=== PATIENT | male | born 1995 | race African-American/Black ===

== ENCOUNTER 2017-05-30 01:00 | Emergency (ER) | payer BC ==
[~2017-05-30] VITALS: Ht 162.6 cm; Wt 64.9 kg
[2017-05-30 01:03] VITALS: TEMP 36.5; O2SAT 98; Ht 162.6 cm; Wt 64.9 kg
--- NOTE | 2017-05-30 01:13 | EMERGENCY ROOM VISIT NOTE ---
History Report prepared by Kyra: Pastora Amanda Under the Supervision of: Dr. Jose Locke M.D. First contact with patient: 01:02 Chief Complaint: ALCOHOL OVERDOSE Stated Complaint: ALCOHOL History of Present Illness The patient is a 21 year old male who presents to the Emergency Room with persistent alcohol intoxication starting SECURITY DIRECTOR. The patient presents to the ED by EMS. He was found outside the [facility] by police. He states he was drinking at a birthday alliance party at the [facility]. He is unsure what he was drinking. He denies any vomiting or nausea. He denies having any pain. Source of History: patient, EMS Onset: SECURITY DIRECTOR Position: other (global) Quality: other (alcohol intoxication) Timing: other (persistent) Associated Symptoms: + vomiting, No nausea Note: Pt denies having any pain. Review of Systems See HPI for pertinent positives & negatives. A total of 10 systems reviewed and were otherwise negative. Past Medical & Surgical Medical Problems: (1) No chronic problems Family History No pertinent family history stated. Social History Occupation Status: [employer] student Current/Historical Medications No Active Prescriptions or Reported Meds Allergies Coded Allergies: No Known Allergies (Unverified , 05/30/17) Physical Exam Vital Signs Date Time Temp Pulse Resp B/P (MAP) Pulse Ox O2 Delivery O2 Flow Rate FiO2 05/30/17 05:13 96 18 110/82 100 05/30/17 02:21 74 18 107/56 98 Room Air 05/30/17 01:17 75 05/30/17 01:03 98 Room Air 05/30/17 01:03 36.5 66 18 135/66 98 Room Air Physical Exam GENERAL: Patient is moderately intoxicated. Smells of alcohol. Pleasant and smiling. Well appearing and in no acute distress. HEAD: No evidence of Trauma. AT/NC EYES: Injected conjunctiva. Normal EOM. Pupils equal/reactive. ENT: Mucous membranes moist, no nasal congestion, . NECK: No step-offs, no adenopathy, no meningismus, trachea is midline. LUNGS: No dyspnea. Clear to auscultation and equal bilaterally. No wheeze, no rhonchi. HEART: Regular rate and rhythm. No murmurs, rubs, gallops appreciated. ABDOMEN: Soft, nontender, bowel sounds positive, no masses appreciated, no peritonitis. BACK: No midline tenderness, no CVA tenderness EXTREMITIES: Normal motion all extremities, no cyanosis, no edema. NEUROLOGIC: Intoxicated. Alert, oriented. No acute motor or sensory deficits, no focal weakness, cranial nerves grossly intact. SKIN: No rash, no jaundice, no diaphoresis. Medical Decision & Procedures Laboratory Results 05/30/17 01:08 Test 05/30/17 01:08 Anion Gap 10.0 mmol/L (3-11) Est Creatinine Clear Calc Drug Dose 118.5 ml/min Estimated GFR () 147.1 Estimated GFR (Non- 126.9 BUN/Creatinine Ratio 16.8 (10-20) Calcium Level 8.3 mg/dl (8.5-10.1) Ethyl Alcohol mg/dL 255.0 mg/dl (0-3) Laboratory results as reviewed by me. ED Course 0103: The patient was evaluated in room B12A. A complete history and physical exam was performed. 0440: I reevaluated the patient. He was awake. He is trying to find a sober friend to go home with. 0456: I reevaluated the patient. I discussed results and discharge instructions : he and his sober friend verbalized understanding and agreement. The patient is ready for discharge with his sober friend. Medical Decision Differential: Alcohol Intoxication, Drug Intoxication, Electrolyte Abnormality, Trauma, Intracranial Event, Toxicological, Excited Delirium, Serotonin Syndrome , amongst other pathologies entertained. 21 yr old intoxicated male brought in by EMS after being found intoxicated at [facility]. Patient with no evidence nor history for trauma. Protecting airway and breathing comfortably throughout ED stay. EtOH positive. Monitored and discharged when awake, alert, oriented and denies any complaints and went home with sober friends. Medication Reconcilliation Current Medication List: was personally reviewed by me Blood Pressure Screening Patient's blood pressure: Normal blood pressure Blood pressure disposition: Did not require urgent referral Impression Primary Impression: Alcohol use with intoxication Additional Impression: Alcohol abuse Scribe Attestation The scribe's documentation has been prepared under my direction and personally reviewed by me in its entirety. I confirm that the note above accurately reflects all work, treatment, procedures, and medical decision making performed by me. Departure Information Dispostion Home / Self-Care Prescriptions No Active Prescriptions or Reported Meds Referrals No Doctor, Assigned (PCP) [facility] Instructions [facility] [employer] Students and Alcohol Related Visits Additional Instructions You were evaluated in emergency department for intoxication. This is a sign of Alcohol Abuse and should not be taken lightly. You had a blood alcohol level that was significantly elevated. Over the next 24 hours keep well hydrated and eat light meals. Don't drink any more alcohol. This is important. Please discuss this visit with your Primary Care Provider, [facility] and/or your loved ones. Unless an exceptional circumstance, the Hospital DOES NOT contact anyone DURING your visit, nor is your Protected Medical Information released to anyone without your approval/request. This means we do not contact your Parents, the Police, etc. However, you will likely receive a bill from the Hospital and/or your Insurance company, which will usually be sent to the Primary Policy [place] (often one's Parents). Furthermore, as a student, your visit report will likely be sent to [facility] as your primary care provider, unless other Provider listed. If your incident was on campus, or if the Police were involved, they will often contact the University to make them aware of what happened. Often this will result in you being required to take Alcohol Education classes (ie BASICS class) . Please see information given to you at discharge regarding contact for this. If the Police were involved you will likely be cited for public intoxication. Please contact either [facility] Police or the [place] Police for further information. Call 911 or return to Emergency Department if you develop: Passing out, difficulty breathing, many episodes of vomiting, blood in vomit or stool, abdominal pain, fevers, or other severe symptoms. We are always here to help if you feel you need further evaluation or treatment. Problem Qualifiers
[2017-05-30 01:35] LABS: BUN/CREATININE RATIO 16.8 (10-20); CALCIUM 8.3 mg/dl (8.5-10.1); CREATININE 0.84 mg/dl (0.60-1.40); POTASSIUM 3.4 mmol/L (3.5-5.1)
[2017-05-30 05:13] VITALS: BP 110/82; PULSE 96; O2SAT 100
== END 2017-05-30 05:12 | disposition home or self-care (01) ==
LOC: EDBD 01:00 → C.EDB 01:02
DX: F10.129 Alcohol abuse with intoxication, unspecified (principal); Y90.8 Blood alcohol level of 240 mg/100 ml or more